=== PATIENT | female | born 1950 | race Caucasian/White ===

== ENCOUNTER 2017-08-20 10:00 | Outpatient (RCR) | payer MEDICARE, SELFPAY | END 2017-09-06 | LOC: PT 10:00 | PROVIDERS: PCP Family Medicine; Visit Provider Family Medicine | DX: I89.0 Lymphedema, not elsewhere classified (principal) | CPT/HCPCS: G8987; G8988; G8989; 71020; 97140; 97162 ==

== ENCOUNTER 2017-10-11 12:00 | Outpatient (RCR) | payer MEDICARE, SELFPAY | END 2017-10-11 12:01 | disposition home or self-care (01) | LOC: PT 12:00 | PROVIDERS: Family Provider Family Medicine; PCP Family Medicine; Visit Provider Family Medicine | DX: I89.0 Lymphedema, not elsewhere classified (principal) | CPT/HCPCS: 97140 ==